=== PATIENT | male | born 1965 | race Caucasian/White ===

== ENCOUNTER 2023-08-14 08:37 | Day surgery (SDC) | payer OTHER, SELFPAY ==
[2023-08-07 06:37] VITALS: BMI 35.3
[2023-08-07 07:03] LABS: % Basophils 0.6 % (0-2); % Eosinophils 1.5 % (0-6); % Immature Granulocytes 0.1 % (0-0.5); % Lymphocytes 29.7 % (20.5-51.1); % Monocytes 7.2 % (1.7-9.3); % Neutrophils 60.9 % (42.2-75.2); Absolute Eosinophils 0.1 10^3/uL (0-0.7); Absolute Monocytes 0.5 10^3/uL (0.1-0.6); Absolute Neutrophils 4.2 10^3/uL (1.4-6.5); Hematocrit 45.2 % (39.0-52.0); Hemoglobin 15.2 g/dL (13.0-18.0); Mean Corp Hgb Conc. 33.6 g/dL (33.0-37.0); Mean Corpuscular Volume 89.2 fL (80.0-94.0); Mean Platelet Volume 9.6 fL (7.4-10.4); Nucleated Red Blood Cells % 0 % (-); Platelet Count 236 10^3/uL (130-400); Red Blood Cell Count 5.07 10^6/uL (4.70-6.10); Red Cell Dist. Width 13.7 % (11.5-14.5); White Blood Cell Count 6.8 10^3/uL (4.8-10.8)
[2023-08-07 07:18] LABS: ALT (SGPT) 23 U/L (0-50); AST (SGOT) 44 U/L (17-59); Albumin 3.9 g/dl (3.5-5.0); Alkaline Phosphatase 56 U/L (38-126); Blood Urea Nitrogen 21 mg/dl (9-20); Calcium 9.2 mg/dl (8.4-10.2); Carbon Dioxide 26 mmol/L (22-30); Chloride 107 mmol/L (98-107); Estimated Creatinine Clearance 93 ml/min; Glucose 102 mg/dl (70-99); Potassium 4.3 mmol/L (3.5-5.1); Sodium 140 mmol/L (135-145); Total Bilirubin 0.7 mg/dl (0.2-1.3); Total Protein 6.7 g/dl (6.3-8.2); eGFR > 60.00
[2023-08-14] VITALS (21 sets, daily range): BP systolic 91–119; BP diastolic 57–77
[2023-08-14 09:54] LABS: ACT-LR - POC 245 Seconds (116-155)
--- NOTE | 2023-08-14 10:50 | ITS.CL.CATH ---
[facility] - Catheterization
Cardiac Catheterization
Procedure Report:
CARDIAC CATHETERIZATION REPORT
Date of Procedure: 08/14/2023
Referring: Valerio Alonso DO
Indication: Significantly ischemic stress test. Patient is asymptomatic
HEMODYNAMIC DATA
AO: 112/73
LV: 112/10
LEFT VENTRICULOGRAPHY: Normal left-ventricular wall motion with EF 62%
CORONARY ANGIOGRAPHY
Dominance: Right
Left Main: Normal
LAD: 80% proximal LAD lesion spanning the takeoff of the first septal gas singer. The remainder of the LAD system has trivial luminal irregularities
Circumflex: 50% distal circumflex stenosis just past the takeoff of the large OM 3 and proximal to the takeoff of the small terminal OM 4. The small OM1, medium sized OM 2 and large OM 3 have no significant disease.
RCA: Trivial luminal irregularities
FloWire assessment: At the conclusion the diagnostic study we performed FloWire assessment of the proximal LAD lesion. Heparin was used for anticoagulation. A 6 M[place] EBU 3.75 guide catheter was used. A ReInnervate wire was advanced into the mid to
distal LAD. iFR measurements were 0.89, 0.89, 0.89 and 0.90. Taken as a whole these measurements are consistent with flow-limiting disease; however, this would be considered in my view and equivocal results. Accordingly, we decided to proceed
with FFR. Resting FFR was 0.93. Following adenosine at 140 mcg/kg/min the FFR was 0.83. Adenosine was increased to 180 mcg/kg/min and the FFR fell to 0.64 consistent with highly flow-limiting disease.
Angioplasty: Prior to the catheterization procedure I had a discussion with the patient regarding the appropriate indications for stenting. I explained that in patients with stable CAD the major benefit of stenting is symptom relief without the
need for multiple antianginal medications. I also explained that in chronic stable disease there is no survival advantage of stenting. I told the patient that whenever stents are placed in the absence of clear ischemic symptoms we are in a lynn
zone and the absence of symptoms is a very appropriate justification for not placing a stent. That said he prefers stenting for any lesion that was considered significant and important. Clearly the proximal LAD stenosis meets that criteria.
Accordingly, we made the decision to proceed with stenting. The ACT was kept in the therapeutic range. Plavix 600 mg was administered at the procedure conclusion. A 3.25 x 15 Xience LOGAN was deployed at 15 keith then postdilated with a 3.5 NC trek
to 17 keith. The final angiographic result was outstanding with no residual stenosis and no compromise in the now jailed first septal gas singer. During balloon occlusion of the LAD he had minimal chest pressure suggesting a impaired anginal warning
system.
Closure Device: None-the procedure was performed via the right radial artery. The Britton's test was normal prior to the procedure.
Radiation (mGy): 472
DAP (cm2.Gy): 43.5
Fluoroscopy time: 6.8 minutes
CONCLUSIONS
1: Normal left ventricular function with EF 62%
2: CAD as described above. The 80% proximal LAD stenosis is highly flow-limiting by FFR criteria
3. Successful stenting of 80% proximal LAD stenosis using 3.25 x 15 Xience [place] LOGAN postdilated with 3.5 mm noncompliant balloon with outstanding final result
4. Recommend triple therapy (aspirin 81, Plavix 75, and Xarelto 15) for 1 week then continue Xarelto and Plavix for 12 months. After that time, Xarelto can be increased back to 20 mg daily and the Plavix discontinued with aspirin 81 mg added. I
would not favor stand-alone oral anticoagulant in a patient with a proximal LAD stent
5. Continue risk factor modification with goal LDL less than 70 ideally less than 55
Copy to: Valerio Alonso DO, Aldo Merlos DO ([place])
Jhon Larkin MD, [facility], [facility]
--- NOTE | 2023-08-14 14:23 | W.PN.UPDATE ---
Update Note
Progress Note Update
Pt seen post LAD PCI. Right radial cath site without ht/bleeding. OOB ambulating. Post EKG AFib 50s, as before, no aucte changes. Pt will stop eliquis and start xarelto 15mg daily, will start OAC tonight. Pt will be on triple therapy with aspirin
81mg, plavix 75mg and xarelto 15mg daily for 1 week, then stop aspirin and remain on plavix/xarelto only. Pt and understand med changes as directed. Cardiac rehab consulted. Followup with Dr. Alonso as scheduled. Home today if cath
site/tele remain stable.
--- NOTE | 2023-08-14 15:59 | PTCARENOTE ---
1420: Clarify patient's next metoprolol dose (R/T BP's running lower 100s systolic post procedure) with Yulia Cardenas NP. She advises this is where he exists and ok to have him take his usual dose of metoprolol this evening. Patient and his updated
and aware. Tolerating all well.
[2023-08-18 11:13] LABS: ACT-LR - POC > 397 Seconds (116-155)
== END 2023-08-14 15:30 | disposition home or self-care (01) ==
LOC: CATH 08:37
PROVIDERS: ATTENDING PHYSICIAN Internal Medicine Cardiovascular Disease; FAMILY PHYSICIAN Family Medicine; OTHER PHYSICIAN Internal Medicine Cardiovascular Disease
DX: I25.10 Atherosclerotic heart disease of native coronary artery without angina pectoris (principal); R94.39 Abnormal result of other cardiovascular function study; I48.91 Unspecified atrial fibrillation; E78.5 Hyperlipidemia, unspecified; K76.0 Fatty (change of) liver, not elsewhere classified; G47.33 Obstructive sleep apnea (adult) (pediatric); E66.9 Obesity, unspecified; Z68.35 Body mass index [BMI] 35.0-35.9, adult; Z79.01 Long term (current) use of anticoagulants
CPT/HCPCS: C1725; C1769; 36415; 80053; 85025; 85347; 93005; 93458; 93571; C1874; C1894; C9600; J0153; Q9967